=== PATIENT | male | born 1990 | race Caucasian/White ===

== ENCOUNTER → 2020-12-07 | Outpatient (REF) | payer OTHER ==
[2020-12-07 09:24] LABS: SEMEN APPEARANCE OPAQUE (OPAQUE); SEMEN VISCOSITY VISCOUS (LIQUID); SPERM CONCENTRATION 17.5 M/ml (>=15.0); WBC CONCENTRATION >1 M/ml (<=1 M/ml)
== END ==
LOC: M LAB REF 09:18
PROVIDERS: ATTEND Obstetrics & Gynecology Reproductive Endocrinology
DX: Z31.41 Encounter for fertility testing (principal)

== ENCOUNTER → 2020-12-31 | Outpatient (REF) | payer OTHER ==
[2020-12-31 11:16] LABS: SEMEN APPEARANCE OPAQUE (OPAQUE); SEMEN VISCOSITY VISCOUS (LIQUID); SEMEN VOLUME 1.6 ml (2.0-5.0); WBC CONCENTRATION <=1 M/ml (<=1 M/ml)
[2020-12-31 11:17] LABS: SPERM CONCENTRATION 77.6 M/ml (>=15.0)
== END ==
LOC: M LAB REF 10:40
PROVIDERS: ATTEND Obstetrics & Gynecology Reproductive Endocrinology
DX: Z31.41 Encounter for fertility testing (principal)

== ENCOUNTER 2021-12-22 07:34 | Emergency (ER) | payer OTHER ==
[~2021-12-22] VITALS: Ht 172.7 cm; Wt 72.3 kg
[2021-12-22] MEDS ORDERED: AUGMENTIN 875 MG TAB PO ONE (08:10)
[2021-12-22] MEDS ORDERED: AMOX875T2 PO (08:20)
[2021-12-22] MEDS ORDERED: PRED20TA PO (08:27)
[2021-12-22 08:38] VITALS: BP 130/73
== END 2021-12-22 08:40 | disposition home or self-care (01) ==
LOC: M ED 07:34
DX: M70.22 Olecranon bursitis, left elbow (principal)